=== PATIENT | female | born 1940 | race Two or more races ===

== ENCOUNTER 2023-01-10 10:06 | Inpatient (IN) | payer MEDICARE, OTHER ==
[~2023-01-10] VITALS: Ht 167.6 cm; Wt 70.3 kg
[2023-01-10 10:55] LABS: CALCIUM, SERUM 9.1 mg/dL (8.5-10.1); CARBON DIOXIDE 27 mmol/L (21-32); CHLORIDE 103 mmol/L (98-107); CREATININE 1.1 mg/dL (0.6-1.3); GLUCOSE 168 mg/dL (74-106); POTASSIUM 3.7 mmol/L (3.5-5.1); SODIUM SERUM 137 mmol/L (136-145); UREA NITROGEN, BLOOD 16 mg/dL (7-18)
[2023-01-10 11:01] LABS: ALANINE AMINOTRANSFERASE 30 U/L (12-78); ALBUMIN 3.3 g/dL (3.4-5.0); ALKALINE PHOSPHATASE 69 U/L (46-116); ASPARTATE AMINOTRANSFERASE 25 U/L (15-37); BILIRUBIN,DIRECT 0.1 mg/dL (0.0-0.2); BILIRUBIN,TOTAL 0.4 mg/dL (0.2-1.0); LIPASE 28 U/L (16-77); TOTAL PROTEIN, SERUM 7.1 g/dL (6.4-8.2)
[2023-01-10 11:17] LABS: BASOPHILS % (AUTO) 0.2 % (0.0-2.0); EOSINOPHILS % (AUTO) 0.2 % (0.0-6.0); HEMATOCRIT 42 % (33-45); HEMOGLOBIN 13.9 g/dL (11.5-14.8); LYMPHOCYTES # (AUTO) 0.5 K/uL (0.8-4.8); LYMPHOCYTES % (AUTO) 5.5 % (20.0-44.0); MEAN CORPUSCULAR HEMOGLOBIN 31 PG (26.0-33.0); MEAN CORPUSCULAR HGB CONC 33 g/dl (31.0-36.0); MEAN CORPUSCULAR VOLUME 92 fL (82-100); MONOCYTES # (AUTO) 0.4 K/uL (0.1-1.30); MONOCYTES % (AUTO) 4.8 % (2.0-12.0); NEUTROPHILS # (AUTO) 8.2 K/uL (1.8-8.9); NEUTROPHILS % (AUTO) 89.3 % (43.0-81.0); PLATELET COUNT (AUTO) 191 K/uL (150-450); RED BLOOD CELL COUNT(AUTO) 4.54 MIL/uL (4.0-5.2); RED CELL DISTRIBUTION WIDTH 12.5 % (11.5-15.0); WHITE BLOOD COUNT (AUTO) 9.1 K/uL (4.3-11.0)
[2023-01-10] MEDS ORDERED: MORPHINE SULFATE INJ 2 MG/ML DISP.SYRIN IV ONE ×2 (12:30→20:00)
[2023-01-10] MEDS ORDERED: ONDANSETRON HCL/PF 4 MG/2 ML VIAL IV ONE (12:30)
[2023-01-10] MEDS ORDERED: ONDANSETRON HCL/PF 4 MG/2 ML VIAL ONE (12:40)
[2023-01-10] MEDS ORDERED: MORPHINE SULFATE INJ 4 MG/ML DISP.SYRIN ONE (12:40)
[2023-01-10] MEDS ORDERED: CT SWABBABLE VALVE TRANS SET 1 EA INFUS.SET MC ONE (13:21)
[2023-01-10] MEDS ORDERED: IOHEXOL-350 100 ML VIAL IV ONE ×2 (13:21→13:49)
[2023-01-10] MEDS ORDERED: IV NS 0.9% 250 ML IV ONE (13:21)
[2023-01-10 15:27] LABS: APPEARANCE,URINE CLEAR (CLEAR); BILIRUBIN,URINE NEGATIVE (NEGATIVE); BLOOD, URINE TRACE-INTA Ery/uL (NEGATIVE); COLOR,URINE YELLOW (YELLOW); KETONES,URINE NEGATIVE (NEGATIVE); LEUKOCYTE ESTERASE ,URINE NEGATIVE (NEGATIVE); NITRITE, URINE NEGATIVE (NEGATIVE); PH,URINE 5.5 (5.0-8.0); PROTEIN,URINE NEGATIVE (NEGATIVE); UGLUCOSE NEGATIVE (NEGATIVE); UROBILINOGEN,URINE 0.2 EU/dL (0.2)
[2023-01-10 16:40] LABS: ADD URINE CULTURE NO; BACTERIA,URINE Rare /HPF (None Seen); RBC,URINE 0-2 /HPF (0-2); SQUAMOUS EPITHELIAL CELL,UR Few /HPF (None Seen); WBC,URINE NONE SEEN /HPF (0-3)
[2023-01-10] MEDS ORDERED: MECL-182 PO (18:07)
[2023-01-10] MEDS ORDERED: PARO10TA86 PO (18:07)
[2023-01-10] MEDS ORDERED: CLON0.5T PO (18:07)
[2023-01-10] MEDS ORDERED: NORT75CA PO (18:07)
[2023-01-10] MEDS ORDERED: ZOLP10TA2 PO (18:07)
[2023-01-10] MEDS ORDERED: MORPHINE SULFATE INJ 2 MG/ML DISP.SYRIN ONE (19:46)
[2023-01-10] MEDS ORDERED: MAGNESIUM HYDROXIDE 30 ML UDC PO PRN (20:30)
[2023-01-10] MEDS ORDERED: ONDANSETRON HCL/PF 4 MG/2 ML VIAL IVP PRN (20:30)
[2023-01-10] MEDS ORDERED: MORPHINE SULFATE INJ 2 MG/ML DISP.SYRIN IV PRN (20:30)
[2023-01-10] MEDS ORDERED: MAG HYDROX/AL HYDROX/SIMETH 30 ML UDC PO PRN (20:30)
[2023-01-10] MEDS ORDERED: Z GUARD REMEDY 4 OZ OINT TP PRN (20:30)
[2023-01-10] MEDS ORDERED: ACETAMINOPHEN 325 MG TABLET PO PRN (20:30)
[2023-01-10] MEDS ORDERED: ZOLPIDEM TARTRATE 5 MG TABLET PO PRN (20:30)
[2023-01-10] MEDS ORDERED: CEFTRIAXONE 1GM BAG (ER ONLY) 50 ML IV ONE (22:57)
[2023-01-10] MEDS ORDERED: METRONIDAZOLE 500MG/ NS 100ML 100 ML IV ONE (23:01)
[2023-01-10] MEDS: IV NS 0.9% 1,000 ML IV PRN (23:08)
[2023-01-10] MEDS: CEFTRIAXONE 1 G in IV D5W 50 ML IV SCH (23:08)
[2023-01-10] MEDS: METRONIDAZOLE 500MG/ NS 100ML 500 MG in PREMIX 1 EA IV SCH (23:55)
[2023-01-11] MEDS ORDERED: ZOLPIDEM TARTRATE 5 MG TABLET ONE (02:28)
[2023-01-11] MEDS ORDERED: METRONIDAZOLE 500MG/ NS 100ML 100 ML IV ONE (06:02)
[2023-01-11] MEDS: METRONIDAZOLE 500MG/ NS 100ML 500 MG in PREMIX 1 EA IV SCH ×4 (06:03→22:25)
[2023-01-11 07:51] LABS: BASOPHILS % (AUTO) 0.3 % (0.0-2.0); EOSINOPHILS # (AUTO) 0.1 K/uL (0.0-0.7); EOSINOPHILS % (AUTO) 1.1 % (0.0-6.0); HEMATOCRIT 37 % (33-45); HEMOGLOBIN 12.4 g/dL (11.5-14.8); LYMPHOCYTES # (AUTO) 1.4 K/uL (0.8-4.8); LYMPHOCYTES % (AUTO) 17.8 % (20.0-44.0); MEAN CORPUSCULAR HEMOGLOBIN 31 PG (26.0-33.0); MEAN CORPUSCULAR HGB CONC 34 g/dl (31.0-36.0); MEAN CORPUSCULAR VOLUME 93 fL (82-100); MONOCYTES # (AUTO) 0.6 K/uL (0.1-1.30); MONOCYTES % (AUTO) 7.4 % (2.0-12.0); NEUTROPHILS # (AUTO) 5.9 K/uL (1.8-8.9); NEUTROPHILS % (AUTO) 73.4 % (43.0-81.0); PLATELET COUNT (AUTO) 160 K/uL (150-450); RED BLOOD CELL COUNT(AUTO) 4.01 MIL/uL (4.0-5.2)
[2023-01-11 08:15] LABS: CALCIUM, SERUM 8.3 mg/dL (8.5-10.1); CREATININE 0.8 mg/dL (0.6-1.3); MAGNESIUM 1.9 mg/dL (1.8-2.4); PHOSPHORUS 3.4 mg/dL (2.5-4.9); POTASSIUM 3.9 mmol/L (3.5-5.1)
[2023-01-11] MEDS ORDERED: PANTOPRAZOLE 40 MG VIAL IV SCH (09:00)
[2023-01-11] MEDS ORDERED: DOCUSATE SODIUM 100 MG CAPSULE PO ONE (09:05)
[2023-01-11] MEDS ORDERED: PANTOPRAZOLE 40 MG VIAL ONE (09:05)
[2023-01-11] MEDS: DOCUSATE SODIUM LIQ 100 MG/10 ML UDC PO SCH ×2 (09:06→16:42)
[2023-01-11] MEDS: POLYETHYLENE GLYCOL 3350 17 GM POWD.PACK PO SCH (10:00)
[2023-01-11] MEDS ORDERED: MORPHINE SULFATE INJ 4 MG/ML DISP.SYRIN ONE (10:03)
[2023-01-11] MEDS: MORPHINE SULFATE INJ 4 MG/ML DISP.SYRIN IV PRN ×2 (10:22→17:06)
[2023-01-11 19:52] LABS: BASOPHILS # (AUTO) 0.1 K/uL (0.0-0.2); BASOPHILS % (AUTO) 0.7 % (0.0-2.0); EOSINOPHILS # (AUTO) 0.1 K/uL (0.0-0.7); EOSINOPHILS % (AUTO) 1.7 % (0.0-6.0); HEMATOCRIT 38 % (33-45); HEMOGLOBIN 12.4 g/dL (11.5-14.8); LYMPHOCYTES % (AUTO) 13.9 % (20.0-44.0); MEAN CORPUSCULAR HEMOGLOBIN 31 PG (26.0-33.0); MEAN CORPUSCULAR HGB CONC 33 g/dl (31.0-36.0); MEAN CORPUSCULAR VOLUME 94 fL (82-100); MONOCYTES # (AUTO) 0.4 K/uL (0.1-1.30); MONOCYTES % (AUTO) 5.8 % (2.0-12.0); NEUTROPHILS # (AUTO) 5.7 K/uL (1.8-8.9); NEUTROPHILS % (AUTO) 77.9 % (43.0-81.0); PLATELET COUNT (AUTO) 175 K/uL (150-450); RED BLOOD CELL COUNT(AUTO) 4.06 MIL/uL (4.0-5.2); WHITE BLOOD COUNT (AUTO) 7.3 K/uL (4.3-11.0)
[2023-01-11] MEDS: IV NS 0.9% 1,000 ML IV PRN ×2 (20:02→22:14)
[2023-01-11 22:00] VITALS: BP 121/71; TEMP 98.8; O2SAT 90
[2023-01-11] MEDS ORDERED: POLYETHYLENE GLYCOL 3350 17 GM POWD.PACK PO ONE (22:00)
[2023-01-11] MEDS: HYDROMORPHONE 1 MG/1 ML DISP.SYRIN IV PRN (22:15)
[2023-01-11] MEDS: PANTOPRAZOLE 40 MG VIAL IV SCH (22:19)
[2023-01-11] MEDS: CEFTRIAXONE 1 G in IV D5W 50 ML IV SCH (23:43)
[2023-01-12] MEDS: ZOLPIDEM TARTRATE 10 MG TABLET PO SCH ×2 (00:09→21:55)
[2023-01-12] MEDS: HYDROMORPHONE 1 MG/1 ML DISP.SYRIN IV PRN ×2 (03:29→17:17)
[2023-01-12] MEDS: METRONIDAZOLE 500MG/ NS 100ML 500 MG in PREMIX 1 EA IV SCH ×4 (03:33→21:56)
[2023-01-12 07:02] LABS: BASOPHILS % (AUTO) 0.3 % (0.0-2.0); EOSINOPHILS # (AUTO) 0.2 K/uL (0.0-0.7); EOSINOPHILS % (AUTO) 2.4 % (0.0-6.0); HEMATOCRIT 35 % (33-45); HEMOGLOBIN 11.5 g/dL (11.5-14.8); LYMPHOCYTES % (AUTO) 14.2 % (20.0-44.0); MEAN CORPUSCULAR HEMOGLOBIN 31 PG (26.0-33.0); MEAN CORPUSCULAR HGB CONC 33 g/dl (31.0-36.0); MEAN CORPUSCULAR VOLUME 95 fL (82-100); MONOCYTES # (AUTO) 0.6 K/uL (0.1-1.30); MONOCYTES % (AUTO) 8.3 % (2.0-12.0); NEUTROPHILS # (AUTO) 5.1 K/uL (1.8-8.9); NEUTROPHILS % (AUTO) 74.8 % (43.0-81.0); PLATELET COUNT (AUTO) 143 K/uL (150-450); RED BLOOD CELL COUNT(AUTO) 3.71 MIL/uL (4.0-5.2); WHITE BLOOD COUNT (AUTO) 6.8 K/uL (4.3-11.0)
[2023-01-12 07:41] LABS: CALCIUM, SERUM 7.8 mg/dL (8.5-10.1); CREATININE 0.8 mg/dL (0.6-1.3); POTASSIUM 3.6 mmol/L (3.5-5.1)
[2023-01-12] MEDS: PANTOPRAZOLE 40 MG VIAL IV SCH ×2 (09:02→21:55)
[2023-01-12] MEDS: DOCUSATE SODIUM LIQ 100 MG/10 ML UDC PO SCH ×2 (09:02→16:25)
[2023-01-12] MEDS: POLYETHYLENE GLYCOL 3350 17 GM POWD.PACK PO SCH (09:02)
[2023-01-12] MEDS ORDERED: LACTULOSE 10 G/15 ML UDC (PYXIS) PO ONE (10:00)
[2023-01-12] MEDS: IV NS 0.9% 1,000 ML IV PRN (15:45)
[2023-01-12 20:00] VITALS: BP 124/67; TEMP 98.8; O2SAT 98
[2023-01-12] MEDS: NORTRIPTYLINE HCL 25 MG CAPSULE PO SCH ×2 (21:56→22:00)
[2023-01-12] MEDS: CEFTRIAXONE 1 G in IV D5W 50 ML IV SCH (23:00)
[2023-01-13] VITALS: BP 126/68; TEMP 99.1; O2SAT 94
[2023-01-13] MEDS: ZOLPIDEM TARTRATE 10 MG TABLET PO SCH ×2 (01:44→21:16)
[2023-01-13] MEDS: METRONIDAZOLE 500MG/ NS 100ML 500 MG in PREMIX 1 EA IV SCH ×4 (04:00→21:16)
[2023-01-13 08:00] VITALS: BP 131/85; TEMP 98.8; O2SAT 94
[2023-01-13] MEDS: PAROXETINE HCL 10 MG TABLET PO SCH (09:00)
[2023-01-13] MEDS: clonazePAM 0.5 MG TABLET PO SCH (09:00)
[2023-01-13] MEDS: DOCUSATE SODIUM LIQ 100 MG/10 ML UDC PO SCH ×2 (09:21→16:14)
[2023-01-13] MEDS: POLYETHYLENE GLYCOL 3350 17 GM POWD.PACK PO SCH (09:21)
[2023-01-13] MEDS: PANTOPRAZOLE 40 MG VIAL IV SCH ×2 (09:22→20:45)
[2023-01-13 11:33] LABS: BASOPHILS % (AUTO) 0.4 % (0.0-2.0); EOSINOPHILS # (AUTO) 0.2 K/uL (0.0-0.7); EOSINOPHILS % (AUTO) 3.3 % (0.0-6.0); HEMATOCRIT 36 % (33-45); HEMOGLOBIN 11.9 g/dL (11.5-14.8); LYMPHOCYTES # (AUTO) 1.1 K/uL (0.8-4.8); LYMPHOCYTES % (AUTO) 20.6 % (20.0-44.0); MEAN CORPUSCULAR HEMOGLOBIN 31 PG (26.0-33.0); MEAN CORPUSCULAR HGB CONC 33 g/dl (31.0-36.0); MEAN CORPUSCULAR VOLUME 94 fL (82-100); MONOCYTES # (AUTO) 0.4 K/uL (0.1-1.30); MONOCYTES % (AUTO) 6.9 % (2.0-12.0); NEUTROPHILS # (AUTO) 3.6 K/uL (1.8-8.9); NEUTROPHILS % (AUTO) 68.8 % (43.0-81.0); PLATELET COUNT (AUTO) 149 K/uL (150-450); RED BLOOD CELL COUNT(AUTO) 3.81 MIL/uL (4.0-5.2); RED CELL DISTRIBUTION WIDTH 12.8 % (11.5-15.0); WHITE BLOOD COUNT (AUTO) 5.2 K/uL (4.3-11.0)
[2023-01-13 11:43] LABS: CALCIUM, SERUM 8.3 mg/dL (8.5-10.1); CREATININE 0.7 mg/dL (0.6-1.3); POTASSIUM 3.1 mmol/L (3.5-5.1)
[2023-01-13] MEDS ORDERED: MISCELLANEOUS MED 1 EA EA RC ONE (12:00)
[2023-01-13] MEDS ORDERED: LACTULOSE 10 G/15 ML UDC (PYXIS) PO ONE (13:00)
[2023-01-13] MEDS ORDERED: POTASSIUM CHLORIDE 20 MEQ POWDER PACKET PO ONE (13:30)
[2023-01-13 14:07] LABS: HEPATITIS B CORE AB, IgM Negative (Negative); HEPATITIS B CORE AB, TOTAL Negative (Negative); HEPATITIS B SURFACE AB Non Reactive (.)
[2023-01-13 16:00] VITALS: BP 148/74; TEMP 98.6; O2SAT 94
[2023-01-13] MEDS: LACTULOSE 10 G/15 ML UDC (PYXIS) PO SCH ×2 (16:14→20:45)
[2023-01-13 20:04] VITALS: BP 146/76; TEMP 98.1; O2SAT 96
[2023-01-13] MEDS: NORTRIPTYLINE HCL 25 MG CAPSULE PO SCH (21:17)
[2023-01-13] MEDS: CEFTRIAXONE 1 G in IV D5W 50 ML IV SCH (22:55)
[2023-01-13 23:51] LABS: HEMOGLOBIN 12.9 g/dL (11.5-14.8)
[2023-01-14] MEDS: METRONIDAZOLE 500MG/ NS 100ML 500 MG in PREMIX 1 EA IV SCH ×3 (04:34→16:49)
[2023-01-14] MEDS: LORAZEPAM 0.5 MG TABLET PO PRN ×3 (04:44→18:40)
[2023-01-14 05:54] LABS: BASOPHILS % (AUTO) 0.4 % (0.0-2.0); EOSINOPHILS # (AUTO) 0.2 K/uL (0.0-0.7); EOSINOPHILS % (AUTO) 4.6 % (0.0-6.0); HEMATOCRIT 36 % (33-45); HEMOGLOBIN 11.9 g/dL (11.5-14.8); LYMPHOCYTES # (AUTO) 1.3 K/uL (0.8-4.8); LYMPHOCYTES % (AUTO) 26.5 % (20.0-44.0); MEAN CORPUSCULAR HEMOGLOBIN 31 PG (26.0-33.0); MEAN CORPUSCULAR HGB CONC 33 g/dl (31.0-36.0); MEAN CORPUSCULAR VOLUME 94 fL (82-100); MONOCYTES # (AUTO) 0.5 K/uL (0.1-1.30); MONOCYTES % (AUTO) 9.6 % (2.0-12.0); NEUTROPHILS # (AUTO) 2.9 K/uL (1.8-8.9); NEUTROPHILS % (AUTO) 58.9 % (43.0-81.0); PLATELET COUNT (AUTO) 166 K/uL (150-450); RED BLOOD CELL COUNT(AUTO) 3.84 MIL/uL (4.0-5.2); RED CELL DISTRIBUTION WIDTH 12.5 % (11.5-15.0); WHITE BLOOD COUNT (AUTO) 4.9 K/uL (4.3-11.0)
[2023-01-14 06:06] LABS: CREATININE 0.8 mg/dL (0.6-1.3); POTASSIUM 3.1 mmol/L (3.5-5.1)
[2023-01-14 06:35] LABS: CALCIUM, SERUM 8.3 mg/dL (8.5-10.1)
[2023-01-14 07:00] VITALS: BP 136/76; TEMP 97.7; O2SAT 91
[2023-01-14] MEDS ORDERED: POTASSIUM CHLORIDE 20 MEQ TAB.PRT.SR PO ONE (08:30)
[2023-01-14] MEDS: PANTOPRAZOLE 40 MG VIAL IV SCH (08:53)
[2023-01-14] MEDS: LACTULOSE 10 G/15 ML UDC (PYXIS) PO SCH (08:54)
[2023-01-14] MEDS: clonazePAM 0.5 MG TABLET PO SCH ×2 (08:57→09:00)
[2023-01-14] MEDS: DOCUSATE SODIUM LIQ 100 MG/10 ML UDC PO SCH (08:57)
[2023-01-14] MEDS: POLYETHYLENE GLYCOL 3350 17 GM POWD.PACK PO SCH (08:58)
[2023-01-14] MEDS: PAROXETINE HCL 10 MG TABLET PO SCH ×2 (08:58→09:00)
[2023-01-14] MEDS ORDERED: POTASSIUM CHLORIDE 20 MEQ POWDER PACKET GT SCH (09:30)
[2023-01-14 12:04] LABS: HEMOGLOBIN 11.8 g/dL (11.5-14.8)
[2023-01-14] MEDS ORDERED: METR500T PO (12:13)
[2023-01-14] MEDS ORDERED: POLY17PO4 PO (12:13)
[2023-01-14] MEDS ORDERED: DOCU50LI PO (12:13)
[2023-01-14] MEDS ORDERED: CIPR-262 PO (12:13)
[2023-01-14 16:00] VITALS: BP 169/88; TEMP 97.2
[2023-01-14] MEDS: HYDROMORPHONE 1 MG/1 ML DISP.SYRIN IV PRN (16:38)
[2023-01-14] MEDS ORDERED: ACET-868 PO (18:59)
[2023-01-14] MEDS ORDERED: MAG30ORA PO (18:59)
[2023-01-14] MEDS ORDERED: LORA-259 PO (18:59)
[2023-01-14] MEDS ORDERED: MAGN400O6 PO (18:59)
[2023-01-14] MEDS ORDERED: ALLA266C2 TP (18:59)
[2023-01-14] MEDS ORDERED: METRONIDAZOLE 500 MG TABLET PO SCH (22:00)
[2023-01-15 22:07] LABS: *HIV-1 RNA BY PCR <20 copies/mL (.)
[2023-01-16 04:24] LABS: HIV-1 p24 ANTIGEN NON REACTIVE (NONREACTIVE); HIV-1/2 ANTIBODY NON REACTIVE (NONREACTIVE)
== END 2023-01-14 19:32 | DRG 373 ==
LOC: ER 10:19 → TRANSITION 22:27 → MED 01-11 10:54
PROVIDERS: ADMIT Nurse Practitioner Acute Care; ATTEND Internal Medicine
DX: A04.9 Bacterial intestinal infection, unspecified (principal); K59.00 Constipation, unspecified; G43.909 Migraine, unspecified, not intractable, without status migrainosus; F32.A Depression, unspecified; D69.6 Thrombocytopenia, unspecified; E87.6 Hypokalemia; Z88.6 Allergy status to analgesic agent; Z73.6 Limitation of activities due to disability
CPT/HCPCS: 36415; 80048-TC; 80061-TC; 80076-TC; 81001; 83690-TC; 83735-TC; 84100-TC; 85025-TC; 85027-TC; 86704; 86705; 86706; 86803; 87086-TC; 87536; 87806; A4216; A4223; C9113; G0378; J0696; J1170; J2270; J2405; J7030; J7050; J7060; Q9967

== ENCOUNTER 2023-01-14 18:42 | Inpatient (IN) | payer MEDICARE, OTHER ==
[~2023-01-14] VITALS: Ht 167.6 cm; Wt 70.3 kg
[~2023-01-14 18:42] MED LIST: CIPR-262 PO; CLON0.5T PO; DOCU50LI PO; MECL-182 PO; METR500T PO; NORT75CA PO; PARO10TA86 PO; POLY17PO4 PO; ZOLP10TA2 PO
[2023-01-14] MEDS ORDERED: ACET-868 PO (18:59)
[2023-01-14] MEDS ORDERED: MAG30ORA PO (18:59)
[2023-01-14] MEDS ORDERED: ALLA266C2 TP (18:59)
[2023-01-14] MEDS ORDERED: MAGN400O6 PO (18:59)
[2023-01-14] MEDS ORDERED: LORA-259 PO (18:59)
[2023-01-14] MEDS ORDERED: ACETAMINOPHEN 325 MG TABLET PO PRN ×2 (19:00→20:30)
[2023-01-14] MEDS ORDERED: TEMAZEPAM 7.5 MG CAPSULE PO PRN (19:00)
[2023-01-14] MEDS ORDERED: MAG HYDROX/AL HYDROX/SIMETH 30 ML UDC PO PRN ×2 (19:00→20:30)
[2023-01-14] MEDS ORDERED: MAGNESIUM HYDROXIDE 30 ML UDC PO PRN ×2 (19:00→20:30)
[2023-01-14] MEDS ORDERED: LORAZEPAM 0.5 MG TABLET PO PRN (19:00)
[2023-01-14] MEDS ORDERED: ZOLPIDEM TARTRATE 10 MG TABLET PO PRN (20:30)
[2023-01-14] MEDS ORDERED: ONDANSETRON 4 MG TAB.RAPDIS PO PRN (20:30)
[2023-01-14] MEDS ORDERED: BLOOD SUGAR DIAGNOSTIC 1 EACH STRIP IN ONE (20:30)
[2023-01-14] MEDS: METRONIDAZOLE 500 MG TABLET PO SCH (21:38)
[2023-01-14 21:52] VITALS: BP 166/86; TEMP 97.9; O2SAT 98
[2023-01-15 00:20] VITALS: BP 142/88; TEMP 98; O2SAT 96
[2023-01-15] MEDS: METRONIDAZOLE 500 MG TABLET PO SCH ×3 (05:35→21:00)
[2023-01-15 07:47] LABS: CHOLESTEROL 146 mg/dL (<200); HDL CHOLESTEROL 39 mg/dL (40-60); LDL 93 mg/dL (0-99); TRIGLYCERIDES 86 mg/dL (30-150)
[2023-01-15 07:49] LABS: ALBUMIN 2.7 g/dL (3.4-5.0); BILIRUBIN,TOTAL 0.5 mg/dL (0.2-1.0); CALCIUM, SERUM 8.8 mg/dL (8.5-10.1); CREATININE 0.7 mg/dL (0.6-1.3); POTASSIUM 3.5 mmol/L (3.5-5.1); TOTAL PROTEIN, SERUM 6.3 g/dL (6.4-8.2)
[2023-01-15 08:00] VITALS: BP 152/84; TEMP 97.9; O2SAT 96
[2023-01-15] MEDS: DOCUSATE SODIUM LIQ 100 MG/10 ML UDC PO SCH ×2 (08:47→16:31)
[2023-01-15] MEDS: CIPROFLOXACIN HCL 500 MG TABLET PO SCH ×2 (08:47→16:31)
[2023-01-15] MEDS ORDERED: PAROXETINE HCL 10 MG TABLET PO SCH (09:00)
[2023-01-15] MEDS ORDERED: POLYETHYLENE GLYCOL 3350 17 GM POWD.PACK PO SCH (09:00)
[2023-01-15 16:00] VITALS: BP 143/82; TEMP 97.8; O2SAT 98
[2023-01-15 20:00] VITALS: BP 145/81; TEMP 97.6; O2SAT 98
[2023-01-15] MEDS ORDERED: MIRTAZAPINE 15 MG TABLET PO SCH (22:00)
== END 2023-01-15 21:18 | disposition home health service (06) | DRG 885 ==
LOC: GPS 18:42
PROVIDERS: ADMIT Psychiatry & Neurology Psychosomatic Medicine; ATTEND Nurse Practitioner Acute Care
DX: F33.1 Major depressive disorder, recurrent, moderate (principal); E44.1 Mild protein-calorie malnutrition; A04.9 Bacterial intestinal infection, unspecified; E88.09 Other disorders of plasma-protein metabolism, not elsewhere classified; K59.00 Constipation, unspecified; F39 Unspecified mood [affective] disorder; Z91.199 Patient's noncompliance with other medical treatment and regimen due to unspecified reason; Z73.6 Limitation of activities due to disability; F41.9 Anxiety disorder, unspecified; Z68.25 Body mass index [BMI] 25.0-25.9, adult; F41.0 Panic disorder [episodic paroxysmal anxiety]; F60.3 Borderline personality disorder
CPT/HCPCS: 36415; 74018; 80053-TC; 80061-TC; 82962-TC; 87081-TC; 97116-TC; Q0162

== ENCOUNTER 2023-07-18 00:50 | Inpatient (IN) | payer MEDICARE, OTHER ==
[~2023-07-18] VITALS: Ht 167.6 cm; Wt 75.4 kg
[2023-07-18] VITALS (7 sets, daily range): BP systolic 103; BP diastolic 63; TEMP 97.7; O2SAT 93–98
[~2023-07-18 00:50] MED LIST changes: +ACET-868 PO; +ALLA266C2 TP; +LORA-259 PO; +MAG30ORA PO; +MAGN400O6 PO; -MECL-182 PO
[2023-07-18 01:44] LABS: BASOPHILS % (AUTO) 0.4 % (0.0-2.0); EOSINOPHILS # (AUTO) 0.3 K/uL (0.0-0.7); EOSINOPHILS % (AUTO) 4.2 % (0.0-6.0); HEMATOCRIT 39 % (33-45); HEMOGLOBIN 12.9 g/dL (11.5-14.8); LYMPHOCYTES # (AUTO) 1.5 K/uL (0.8-4.8); MEAN CORPUSCULAR HEMOGLOBIN 31 PG (26.0-33.0); MEAN CORPUSCULAR HGB CONC 33 g/dl (31.0-36.0); MEAN CORPUSCULAR VOLUME 92 fL (82-100); MONOCYTES # (AUTO) 0.5 K/uL (0.1-1.30); MONOCYTES % (AUTO) 8.4 % (2.0-12.0); NEUTROPHILS # (AUTO) 4.1 K/uL (1.8-8.9); PLATELET COUNT (AUTO) 201 K/uL (150-450); RED BLOOD CELL COUNT(AUTO) 4.18 MIL/uL (4.0-5.2); RED CELL DISTRIBUTION WIDTH 13.4 % (11.5-15.0); WHITE BLOOD COUNT (AUTO) 6.4 K/uL (4.3-11.0)
[2023-07-18 02:11] LABS: LACTIC ACID 2.8 mmol/L (0.4-2.0)
[2023-07-18] MEDS ORDERED: MORPHINE SULFATE INJ 4 MG/ML DISP.SYRIN ONE (02:14)
[2023-07-18] MEDS ORDERED: ONDANSETRON HCL/PF 4 MG/2 ML VIAL ONE (02:14)
[2023-07-18] MEDS: ONDANSETRON HCL/PF - ER 4 MG/2 ML VIAL IV ONE (02:15)
[2023-07-18] MEDS: MORPHINE SULFATE INJ 2 MG/ML DISP.SYRIN IV ONE (02:15)
[2023-07-18] MEDS ORDERED: PIPERACI/TAZO 3.375GM/D5W 50ML PB IV ONE (02:32)
[2023-07-18] MEDS: PIPERACILLIN /TAZOBACTAM 3.375 G in IV D5W 50 ML IV ONE (02:33)
[2023-07-18] MEDS: IV NS 0.9% 1,000 ML IV ONE (02:33)
[2023-07-18 03:15] LABS: CALCIUM, SERUM 9.3 mg/dL (8.5-10.1); CARBON DIOXIDE 24 mmol/L (21-32); CHLORIDE 100 mmol/L (98-107); CREATININE 1.2 mg/dL (0.6-1.3); GLUCOSE 112 mg/dL (74-106); POTASSIUM 3.9 mmol/L (3.5-5.1); SODIUM SERUM 138 mmol/L (136-145); UREA NITROGEN, BLOOD 25 mg/dL (7-18)
[2023-07-18] MEDS ORDERED: LORAZEPAM INJ 2 MG/ML VIAL ONE (03:18)
[2023-07-18 03:20] LABS: ALANINE AMINOTRANSFERASE 24 U/L (12-78); ALBUMIN 3.3 g/dL (3.4-5.0); ALKALINE PHOSPHATASE 74 U/L (46-116); ASPARTATE AMINOTRANSFERASE 21 U/L (15-37); BILIRUBIN,TOTAL 0.5 mg/dL (0.2-1.0); LIPASE 31 U/L (16-77); NT-PRO BNP 209 pg/mL (0-125)
[2023-07-18 03:20] LABS: ALBUMIN 3.1 g/dL (3.4-5.0); BILIRUBIN,DIRECT 0.1 mg/dL (0.0-0.2); BILIRUBIN,TOTAL 0.6 mg/dL (0.2-1.0); CREATININE 1.2 mg/dL (0.6-1.3); TOTAL PROTEIN, SERUM 7.6 g/dL (6.4-8.2)
[2023-07-18 03:28] LABS: INR 1.02 (0.91-1.10); PARTIAL THROMBOPLASTIN TIME 29.3 SEC (24.3-34.3); PROTHROMBIN TIME 10.8 SECS (9.2-11.1)
[2023-07-18] MEDS ORDERED: LACTULOSE 10 G/15 ML UDC (PYXIS) ONE ×2 (03:54→03:55)
[2023-07-18 03:56] LABS: BILIRUBIN,DIRECT 0.1 mg/dL (0.0-0.2)
[2023-07-18] MEDS: LACTULOSE 10 G/15 ML UDC (PYXIS) PO ONE (04:00)
[2023-07-18 04:05] LABS: LACTIC ACID REFLEX 2.7 mmol/L (0.4-1.9)
[2023-07-18] MEDS: LORAZEPAM INJ 2 MG/ML VIAL IV ONE (04:20)
[2023-07-18] MEDS ORDERED: ZOLPIDEM TARTRATE 5 MG TABLET PO PRN (06:00)
[2023-07-18] MEDS ORDERED: MAG HYDROX/AL HYDROX/SIMETH 30 ML UDC PO PRN (06:00)
[2023-07-18] MEDS ORDERED: ONDANSETRON HCL/PF 4 MG/2 ML VIAL IVP PRN (06:00)
[2023-07-18] MEDS ORDERED: Z GUARD REMEDY 4 OZ OINT TP PRN (06:00)
[2023-07-18 06:32] LABS: APPEARANCE,URINE SLIGHTLY CLOUDY (CLEAR); BILIRUBIN,URINE NEGATIVE (NEGATIVE); BLOOD, URINE NEGATIVE Ery/uL (NEGATIVE); COLOR,URINE YELLOW (YELLOW); KETONES,URINE NEGATIVE (NEGATIVE); LEUKOCYTE ESTERASE ,URINE 2+ (NEGATIVE); NITRITE, URINE NEGATIVE (NEGATIVE); PH,URINE 5.5 (5.0-8.0); PROTEIN,URINE TRACE mg/dl (NEGATIVE); UGLUCOSE NEGATIVE (NEGATIVE); UROBILINOGEN,URINE 0.2 EU/dL (0.2)
[2023-07-18 06:54] LABS: ADD URINE CULTURE YES; BACTERIA,URINE 1+ /HPF (None Seen); CALCIUM OXALATE CRYSTALS,UR Few /HPF (None Seen); TRICHOMONAS,URINE None Seen /HPF (None Seen); YEAST,URINE None Seen /HPF (None Seen)
[2023-07-18 06:57] LABS: FINE GRANULAR CASTS,URINE Rare /LPF (None Seen); MUCUS,URINE Few /LPF (None Seen)
[2023-07-18 07:16] LABS: BASOPHILS % (AUTO) 0.4 % (0.0-2.0); EOSINOPHILS # (AUTO) 0.2 K/uL (0.0-0.7); EOSINOPHILS % (AUTO) 3.2 % (0.0-6.0); HEMATOCRIT 34 % (33-45); HEMOGLOBIN 11.5 g/dL (11.5-14.8); LYMPHOCYTES # (AUTO) 1.4 K/uL (0.8-4.8); LYMPHOCYTES % (AUTO) 21.9 % (20.0-44.0); MEAN CORPUSCULAR HEMOGLOBIN 31 PG (26.0-33.0); MEAN CORPUSCULAR HGB CONC 34 g/dl (31.0-36.0); MEAN CORPUSCULAR VOLUME 92 fL (82-100); MONOCYTES # (AUTO) 0.5 K/uL (0.1-1.30); MONOCYTES % (AUTO) 8.2 % (2.0-12.0); NEUTROPHILS # (AUTO) 4.2 K/uL (1.8-8.9); NEUTROPHILS % (AUTO) 66.3 % (43.0-81.0); PLATELET COUNT (AUTO) 175 K/uL (150-450); RED BLOOD CELL COUNT(AUTO) 3.71 MIL/uL (4.0-5.2); RED CELL DISTRIBUTION WIDTH 13.5 % (11.5-15.0); WHITE BLOOD COUNT (AUTO) 6.3 K/uL (4.3-11.0)
[2023-07-18 07:33] LABS: LACTIC ACID 1.9 mmol/L (0.4-2.0)
[2023-07-18 07:36] LABS: ALBUMIN 2.9 g/dL (3.4-5.0); BILIRUBIN,DIRECT 0.1 mg/dL (0.0-0.2); BILIRUBIN,TOTAL 0.5 mg/dL (0.2-1.0); CALCIUM, SERUM 8.4 mg/dL (8.5-10.1); CREATININE 1.1 mg/dL (0.6-1.3); MAGNESIUM 2.1 mg/dL (1.8-2.4); PHOSPHORUS 3.4 mg/dL (2.5-4.9); POTASSIUM 4.1 mmol/L (3.5-5.1); TOTAL PROTEIN, SERUM 7.1 g/dL (6.4-8.2)
[2023-07-18 07:43] LABS: THYROID STIMULATING HORMONE 3.204 uIU/mL (0.358-3.74)
[2023-07-18] MEDS ORDERED: ALBU90AE2 IH (07:52)
[2023-07-18] MEDS: IV NS 0.9% 1,000 ML IV PRN (08:41)
[2023-07-18] MEDS: PANTOPRAZOLE 40 MG VIAL IV SCH (08:42)
[2023-07-18] MEDS: ENOXAPARIN SODIUM 40 MG/0.4 ML DISP.SYRIN SQ SCH (08:54)
[2023-07-18] MEDS: CEFEPIME 2 GM in IV D5W 100 ML IV SCH (08:56)
[2023-07-18] MEDS ORDERED: CEFEPIME 2 GM in IV D5W 100 ML IV SCH (09:00)
[2023-07-18] MEDS: MORPHINE SULFATE INJ 4 MG/ML DISP.SYRIN IV PRN (09:37)
[2023-07-18] MEDS: IV D5/ 0.9% NACL 1,000 ML IV PRN (10:05)
[2023-07-18] MEDS: ALBUTEROL FS 2.5 MG/3 ML VIAL.NEB NEB PRN (12:59)
[2023-07-18] MEDS ORDERED: DIATR MEGLU/DIATRIZOATE SODIUM 30 ML BOTTLE (GASTROGRAPHIN) ONE (17:50)
[2023-07-18] MEDS ORDERED: IV NS 0.9% 250 ML IV ONE (20:12)
[2023-07-18] MEDS ORDERED: IOHEXOL-300 100 ML VIAL IV ONE (20:12)
[2023-07-18] MEDS ORDERED: CT SWABBABLE VALVE TRANS SET 1 EA INFUS.SET MC ONE (20:12)
[2023-07-18] MEDS: NORTRIPTYLINE HCL 25 MG CAPSULE PO SCH (22:00)
[2023-07-18] MEDS: ZOLPIDEM TARTRATE 10 MG TABLET PO PRN (23:39)
[2023-07-19 06:57] LABS: BASOPHILS % (AUTO) 0.4 % (0.0-2.0); EOSINOPHILS # (AUTO) 0.3 K/uL (0.0-0.7); EOSINOPHILS % (AUTO) 5.4 % (0.0-6.0); HEMATOCRIT 34 % (33-45); HEMOGLOBIN 11.2 g/dL (11.5-14.8); LYMPHOCYTES # (AUTO) 1.1 K/uL (0.8-4.8); LYMPHOCYTES % (AUTO) 18.8 % (20.0-44.0); MEAN CORPUSCULAR HEMOGLOBIN 31 PG (26.0-33.0); MEAN CORPUSCULAR HGB CONC 33 g/dl (31.0-36.0); MEAN CORPUSCULAR VOLUME 93 fL (82-100); MONOCYTES # (AUTO) 0.5 K/uL (0.1-1.30); MONOCYTES % (AUTO) 9.2 % (2.0-12.0); NEUTROPHILS # (AUTO) 3.8 K/uL (1.8-8.9); NEUTROPHILS % (AUTO) 66.2 % (43.0-81.0); PLATELET COUNT (AUTO) 176 K/uL (150-450); RED CELL DISTRIBUTION WIDTH 13.3 % (11.5-15.0); WHITE BLOOD COUNT (AUTO) 5.8 K/uL (4.3-11.0)
[2023-07-19 07:00] VITALS: BP 144/63; TEMP 99; O2SAT 94
[2023-07-19 07:09] LABS: CREATININE 0.8 mg/dL (0.6-1.3); POTASSIUM 4.6 mmol/L (3.5-5.1)
[2023-07-19] MEDS ORDERED: SENNOSIDES/DOCUSATE SODIUM 1 TAB TABLET PO PRN (09:00)
[2023-07-19] MEDS: PAROXETINE HCL 10 MG TABLET PO SCH (09:25)
[2023-07-19 16:00] VITALS: BP 135/67; TEMP 98.8; O2SAT 94
[2023-07-19] MEDS: ACETAMINOPHEN 325 MG TABLET PO PRN (18:46)
[2023-07-19] MEDS: POLYETHYLENE GLYCOL 3350 17 GM POWD.PACK PO PRN (18:46)
[2023-07-19 20:00] VITALS: BP 122/67; TEMP 98; O2SAT 98
[2023-07-19] MEDS: CEFEPIME 1 GM in IV D5W 50 ML IV SCH (20:11)
[2023-07-20 06:38] LABS: BASOPHILS % (AUTO) 0.4 % (0.0-2.0); EOSINOPHILS # (AUTO) 0.3 K/uL (0.0-0.7); EOSINOPHILS % (AUTO) 5.8 % (0.0-6.0); HEMATOCRIT 33 % (33-45); HEMOGLOBIN 11.5 g/dL (11.5-14.8); MEAN CORPUSCULAR HEMOGLOBIN 31 PG (26.0-33.0); MEAN CORPUSCULAR HGB CONC 34 g/dl (31.0-36.0); MEAN CORPUSCULAR VOLUME 92 fL (82-100); MONOCYTES # (AUTO) 0.4 K/uL (0.1-1.30); MONOCYTES % (AUTO) 7.7 % (2.0-12.0); NEUTROPHILS # (AUTO) 3.1 K/uL (1.8-8.9); NEUTROPHILS % (AUTO) 66.1 % (43.0-81.0); PLATELET COUNT (AUTO) 162 K/uL (150-450); RED BLOOD CELL COUNT(AUTO) 3.66 MIL/uL (4.0-5.2); RED CELL DISTRIBUTION WIDTH 13.1 % (11.5-15.0); WHITE BLOOD COUNT (AUTO) 4.8 K/uL (4.3-11.0)
[2023-07-20 06:58] LABS: CALCIUM, SERUM 8.5 mg/dL (8.5-10.1); CARBON DIOXIDE 25 mmol/L (21-32); CHLORIDE 106 mmol/L (98-107); CREATININE 0.7 mg/dL (0.6-1.3); GLUCOSE 92 mg/dL (74-106); POTASSIUM 4.2 mmol/L (3.5-5.1); SODIUM SERUM 138 mmol/L (136-145); UREA NITROGEN, BLOOD 12 mg/dL (7-18)
[2023-07-20 08:15] VITALS: BP 136/62; TEMP 98.2; O2SAT 97
[2023-07-20] MEDS: PANTOPRAZOLE 40 MG TABLET.DR PO SCH (08:21)
[2023-07-20] MEDS: NA PHOS,M-B/NA PHOS,DI-BA 1 EA ENEMA RC ONE (10:27)
[2023-07-20] MEDS: DICYCLOMINE HCL 10 MG CAPSULE PO SCH (11:30)
[2023-07-20] MEDS: MAGNESIUM HYDROXIDE 30 ML UDC PO PRN (14:12)
[2023-07-20 16:53] VITALS: BP 143/69; TEMP 98.2; O2SAT 96
[2023-07-20] MEDS: DOCUSATE SODIUM 100 MG CAPSULE PO SCH (17:29)
[2023-07-20 20:00] VITALS: BP 131/75; TEMP 98.1; O2SAT 95
[2023-07-20 20:01] VITALS: BP 131/75; TEMP 98.1; O2SAT 95
[2023-07-20] MEDS: SENNOSIDES 8.6 MG TABLET PO SCH (21:16)
[2023-07-21 06:51] LABS: BASOPHILS % (AUTO) 0.3 % (0.0-2.0); EOSINOPHILS # (AUTO) 0.3 K/uL (0.0-0.7); EOSINOPHILS % (AUTO) 5.6 % (0.0-6.0); HEMATOCRIT 33 % (33-45); HEMOGLOBIN 11.2 g/dL (11.5-14.8); LYMPHOCYTES # (AUTO) 1.2 K/uL (0.8-4.8); LYMPHOCYTES % (AUTO) 20.1 % (20.0-44.0); MEAN CORPUSCULAR HEMOGLOBIN 31 PG (26.0-33.0); MEAN CORPUSCULAR HGB CONC 34 g/dl (31.0-36.0); MEAN CORPUSCULAR VOLUME 92 fL (82-100); MONOCYTES # (AUTO) 0.5 K/uL (0.1-1.30); NEUTROPHILS # (AUTO) 3.8 K/uL (1.8-8.9); PLATELET COUNT (AUTO) 184 K/uL (150-450); WHITE BLOOD COUNT (AUTO) 5.8 K/uL (4.3-11.0)
[2023-07-21 07:54] LABS: CALCIUM, SERUM 8.6 mg/dL (8.5-10.1); CREATININE 0.7 mg/dL (0.6-1.3); POTASSIUM 3.8 mmol/L (3.5-5.1)
[2023-07-21 08:28] VITALS: BP 137/74; TEMP 98.4; O2SAT 93
[2023-07-21] MEDS ORDERED: SENN1TAB6 PO (12:11)
[2023-07-21] MEDS ORDERED: DOCU100C36 PO (12:11)
[2023-07-21] MEDS ORDERED: DICY10CA37 PO (12:11)
[2023-07-21 16:13] VITALS: BP 140/82; TEMP 97.9; O2SAT 97
[2023-07-22 08:00] VITALS: BP 119/74; TEMP 97.5; O2SAT 94
== END 2023-07-22 18:10 | disposition home or self-care (01) | DRG 391 ==
LOC: ER 00:57 → MED 07:37
PROVIDERS: ADMIT Nurse Practitioner Acute Care; ATTEND Nurse Practitioner Acute Care
DX: K59.00 Constipation, unspecified (principal); J15.9 Unspecified bacterial pneumonia; E87.20 Acidosis, unspecified; R10.9 Unspecified abdominal pain; D64.9 Anemia, unspecified; Z90.710 Acquired absence of both cervix and uterus; F32.9 Major depressive disorder, single episode, unspecified; S00.83XA Contusion of other part of head, initial encounter; W18.30XA Fall on same level, unspecified, initial encounter; Y93.9 Activity, unspecified; Y92.009 Unspecified place in unspecified non-institutional (private) residence as the place of occurrence of the external cause
CPT/HCPCS: 36415; 70450-TC; 71045-TC; 80048-TC; 80053-TC; 80076-TC; 81001; 82248-TC; 83605-TC; 83690-TC; 83735-TC; 83880; 84100-TC; 84443-TC; 84484-TC; 85025-TC; 85730-TC; 87040-TC; 87086-TC; 94799-TC; 97116-TC; 97530-TC; A4223; C9113; G0378; J0692; J1650; J2060; J2270; J2405; J2543; J7030; J7042; J7050; J7060; Q9963; Q9967